=== PATIENT | female | born 1975 | race African-American/Black ===

== ENCOUNTER 2016-11-06 15:05 | Emergency (ER) | payer BC, MEDICAID, OTHER ==
[~2016-11-06] VITALS: Ht 170.2 cm; Wt 160.0 kg
[2016-11-06 15:44] LABS: EOSINOPHILS # (AUTO) 0.05 K/uL (0.00-0.70); HEMATOCRIT 36.1 % (36-46); HEMOGLOBIN 12.1 g/dL (12.0-16.0); LYMPHOCYTES # (AUTO) 1.4 K/uL (1.0-4.8); LYMPHOCYTES % (AUTO) 22.3 % (22.0-44.0); MEAN CORPUSCULAR HEMOGLOBIN 28.5 pg (26.0-34.0); MEAN CORPUSCULAR HGB CONC 33.7 G/dL (31.0-37.0); MEAN CORPUSCULAR VOLUME 85 fL (80-100); MONOCYTES # (AUTO) 0.3 K/uL (0.1-1.0); MONOCYTES % (AUTO) 4.3 % (2.0-9.0); NEUTROPHILS # (AUTO) 4.5 K/uL (1.8-7.7); NEUTROPHILS % (AUTO) 72.7 % (40.0-70.0); PLATELET COUNT (AUTO) 141 K/uL (150-450); RED BLOOD CELL COUNT(AUTO) 4.27 MIL/uL (4.00-5.20); RED CELL DISTRIBUTION WIDTH 14.6 % (11.5-14.5); WHITE BLOOD COUNT (AUTO) 6.1 K/uL (4.5-11.0)
[2016-11-06 15:52] LABS: ANION GAP 9 mmol/L (8-16); CALCIUM, TOTAL 8.7 mg/dL (8.8-10.5); CARBON DIOXIDE 26 mmol/L (22-29); CHLORIDE 102 mmol/L (98-107); CREATININE 0.79 mg/dL (0.60-1.30); GLOMERULAR FILTR. RATE CALC > 60 mL/min (>60); POTASSIUM 3.8 mmol/L (3.5-5.1); SODIUM SERUM 137 mmol/L (136-145); UREA NITROGEN, BLOOD 13 mg/dL (7-18)
[2016-11-06 15:56] LABS: APPEARANCE,URINE CLEAR (CLEAR); GLUCOSE, URINE (UA) NEGATIVE (NEGATIVE); KETONES,URINE NEGATIVE (NEGATIVE); LEUKOCYTE ESTERASE ,URINE TRACE (NEGATIVE); OCCULT BLOOD,URINE TRACE (NEGATIVE); PROTEIN,URINE NEGATIVE (NEGATIVE)
[2016-11-06 15:57] LABS: ALANINE AMINOTRANSFERASE 15 U/L (12-78); ALBUMIN 4.2 g/dL (3.4-5.0); ASPARTATE AMINOTRANSFERASE 16 U/L (15-37); BILIRUBIN,TOTAL 0.6 mg/dL (0.1-1.0)
[2016-11-06 16:01] LABS: RBC,URINE 0-2 /HPF (0-2); WBC,URINE 0-2 /HPF (0-5)
[2016-11-06 16:02] LABS: SQUAMOUS EPITHELIAL CELL,UR Rare /LPF (None Seen)
[2016-11-06] MEDS ORDERED: LISINOPRIL 10 MG TABLET PO ONE ×2 (17:00→18:00)
[2016-11-06] MEDS ORDERED: HYDROCHLOROTHIAZIDE 25 MG TABLET PO ONE ×2 (17:00→18:00)
[2016-11-06] MEDS ORDERED: ACETAMINOPHEN 500 MG TABLET PO ONE (18:15)
[2016-11-06 20:15] VITALS: BP 76/150
== END 2016-11-06 20:49 | disposition home or self-care (01) ==
LOC: EMS 15:07
DX: I16.0 Hypertensive urgency (principal); I10 Essential (primary) hypertension; R51 Headache
CPT/HCPCS: 93005; 99291

== ENCOUNTER 2018-08-18 02:00 | Emergency (ER) | payer OTHER ==
[~2018-08-18] VITALS: Ht 170.2 cm; Wt 63.6 kg
[2018-08-18 03:00] LABS: APPEARANCE,URINE CLOUDY (CLEAR); BILIRUBIN,URINE NEGATIVE (NEGATIVE); GLUCOSE, URINE (UA) NEGATIVE (NEGATIVE); KETONES,URINE TRACE mg/dL (NEGATIVE); LEUKOCYTE ESTERASE ,URINE SMALL (NEGATIVE); NITRATE,URINE NEGATIVE (NEGATIVE); OCCULT BLOOD,URINE NEGATIVE (NEGATIVE); PROTEIN,URINE NEGATIVE (NEGATIVE)
[2018-08-18 03:04] LABS: BACTERIA,URINE Few /HPF (None Seen); RBC,URINE 0-2 /HPF (0-2)
[2018-08-18 03:05] LABS: SQUAMOUS EPITHELIAL CELL,UR Many /LPF (None Seen)
[2018-08-18] MEDS ORDERED: CefTRIAXone SODIUM 1 GM/VIAL IM ONE (04:00)
[2018-08-18] MEDS ORDERED: AZITHROMYCIN 250 MG TABLET PO ONE (04:00)
[2018-08-18 04:06] VITALS: BP 178/97
== END 2018-08-18 04:08 | disposition home or self-care (01) ==
LOC: EMS 02:01
DX: N39.0 Urinary tract infection, site not specified (principal)
CPT/HCPCS: 81001; 81025; 84703; 87086; 96372; 99283; J0696

== ENCOUNTER 2019-04-02 21:12 | Emergency (ER) | payer OTHER ==
[~2019-04-02] VITALS: Ht 170.2 cm; Wt 65.9 kg
[2019-04-02] MEDS ORDERED: METOCLOPRAMIDE HCL 5 MG/ML 2 ML VIAL IVP ONE (23:00)
[2019-04-02] MEDS ORDERED: SODIUM CHLORIDE 0.9% 1,000 ML IV ONE (23:00)
[2019-04-02] MEDS ORDERED: LABETALOL HCL 5 MG/ML 20 ML VIAL IVP ONE (23:15)
[2019-04-02 23:24] LABS: EOSINOPHILS % (AUTO) 1.7 % (1.0-6.0); HEMATOCRIT 30.1 % (36-46); LYMPHOCYTES # (AUTO) 0.5 K/uL (1.0-4.8); LYMPHOCYTES % (AUTO) 8.4 % (22.0-44.0); MEAN CORPUSCULAR HEMOGLOBIN 23.6 pg (26.0-34.0); MEAN CORPUSCULAR HGB CONC 33.3 G/dL (31.0-37.0); MEAN CORPUSCULAR VOLUME 71 fL (80-100); MONOCYTES # (AUTO) 0.4 K/uL (0.1-1.0); MONOCYTES % (AUTO) 6.6 % (2.0-9.0); NEUTROPHILS # (AUTO) 4.6 K/uL (1.8-7.7); NEUTROPHILS % (AUTO) 82.3 % (40.0-70.0); PLATELET COUNT (AUTO) 155 K/uL (150-450); RED BLOOD CELL COUNT(AUTO) 4.25 MIL/uL (4.00-5.20); RED CELL DISTRIBUTION WIDTH 19.1 % (11.5-14.5)
[2019-04-02 23:31] LABS: ANION GAP 8 mmol/L (8-16); CALCIUM, TOTAL 8.7 mg/dL (8.8-10.5); CARBON DIOXIDE 25 mmol/L (22-29); CHLORIDE 100 mmol/L (98-107); CREATININE 0.99 mg/dL (0.60-1.30); GLOMERULAR FILTR. RATE CALC > 60 mL/min (>60); GLUCOSE,RANDOM 89 mg/dL (70-110); POTASSIUM 3.7 mmol/L (3.5-5.1); SODIUM SERUM 133 mmol/L (136-145); UREA NITROGEN, BLOOD 16 mg/dL (7-18)
[2019-04-02 23:45] LABS: ALANINE AMINOTRANSFERASE 19 U/L (12-78); ALBUMIN 3.5 g/dL (3.4-5.0); ALKALINE PHOSPHATASE 71 U/L (46-116); ASPARTATE AMINOTRANSFERASE 23 U/L (15-37); BILIRUBIN,TOTAL 0.6 mg/dL (0.1-1.0); HCG,QUANTITATIVE < 1 mIU/mL (0-6); TOTAL PROTEIN, SERUM 7.2 g/dL (6.4-8.2)
[2019-04-03 01:07] VITALS: BP 127/96
== END 2019-04-03 01:13 | disposition home or self-care (01) ==
LOC: EMS 21:12
DX: I10 Essential (primary) hypertension (principal); R51 Headache
CPT/HCPCS: 36415; 70450; 80053; 84702; 85025; 96374; 96375; 99284; J2765; J3490; J7030

== ENCOUNTER 2020-10-05 17:22 | Emergency (ER) | payer OTHER ==
[~2020-10-05] VITALS: Ht 170.2 cm; Wt 70.5 kg
[2020-10-05 17:55] VITALS: BP 161/109
[2020-10-05] MEDS ORDERED: LOSA25TA21 PO (17:59)
[2020-10-05] MEDS ORDERED: ACETAMINOPHEN 500 MG TABLET PO ONE (20:15)
== END 2020-10-05 22:02 | disposition home or self-care (01) ==
LOC: EMS 17:26
DX: U07.1 COVID-19 (principal); I10 Essential (primary) hypertension; F12.90 Cannabis use, unspecified, uncomplicated; Z88.8 Allergy status to other drugs, medicaments and biological substances; Z79.899 Other long term (current) drug therapy
CPT/HCPCS: 99283; U0003

== ENCOUNTER 2022-10-25 18:46 | Inpatient (IN) | payer OTHER ==
[~2022-10-25] VITALS: Ht 170.2 cm; Wt 68.0 kg
[~2022-10-25 18:46] MED LIST: LOSA-381 PO
[2022-10-25] MEDS ORDERED: LABETALOL HCL 5 MG/ML 20 ML VIAL IVP PRN ×2 (19:00)
[2022-10-25] MEDS ORDERED: ASPIRIN 81 MG CHEWABLE TABLET PO ONE (20:15)
[2022-10-25] MEDS ORDERED: GADOTERATE MEGLUMINE 10 MMOL/20 ML VIAL IVP ONE (20:49)
[2022-10-25 21:06] LABS: BASOPHILS % (AUTO) 0.4 % (0.0-2.0); HEMATOCRIT 40.5 % (36-46); HEMOGLOBIN 13.3 g/dL (12.0-16.0); LYMPHOCYTES # (AUTO) 1.7 K/uL (1.0-4.8); LYMPHOCYTES % (AUTO) 27.9 % (22.0-44.0); MEAN CORPUSCULAR HEMOGLOBIN 29.5 pg (26.0-34.0); MEAN CORPUSCULAR HGB CONC 32.7 G/dL (31.0-37.0); MEAN CORPUSCULAR VOLUME 90 fL (80-100); MONOCYTES # (AUTO) 0.4 K/uL (0.1-1.0); MONOCYTES % (AUTO) 6.5 % (2.0-9.0); NEUTROPHILS # (AUTO) 3.9 K/uL (1.8-7.7); NEUTROPHILS % (AUTO) 63.2 % (40.0-70.0); PLATELET COUNT (AUTO) 131 K/uL (150-450); RED CELL DISTRIBUTION WIDTH 12.6 % (11.5-14.5); WHITE BLOOD COUNT (AUTO) 6.1 K/uL (4.5-11.0)
[2022-10-25 21:10] LABS: ANION GAP 9 mmol/L (8-16); CARBON DIOXIDE 28 mmol/L (22-29); CHLORIDE 103 mmol/L (98-107); CREATININE 0.85 mg/dL (0.60-1.30); GLOMERULAR FILTR. RATE CALC > 60 mL/min (>60); GLUCOSE,RANDOM 77 mg/dL (70-110); POTASSIUM 3.5 mmol/L (3.5-5.1); SODIUM SERUM 140 mmol/L (136-145); UREA NITROGEN, BLOOD 21 mg/dL (7-18)
[2022-10-25 21:13] LABS: PROTHROMBIN TIME 10.9 SEC (9.4-11.6)
[2022-10-25 21:16] LABS: ALANINE AMINOTRANSFERASE 11 U/L (12-78); ALBUMIN 3.8 g/dL (3.4-5.0); ALKALINE PHOSPHATASE 83 U/L (46-116); ASPARTATE AMINOTRANSFERASE 19 U/L (15-37); BILIRUBIN,TOTAL 0.6 mg/dL (0.1-1.0); TOTAL PROTEIN, SERUM 7.3 g/dL (6.4-8.2)
[2022-10-25 21:31] LABS: TROPONIN I-HIGH SENSITIVITY 5 ng/L (<51)
[2022-10-25] MEDS ORDERED: ONDANSETRON HCL 4 MG/2 ML VIAL IVP PRN (22:00)
[2022-10-25] MEDS ORDERED: ACETAMINOPHEN 325 MG TABLET PO PRN (22:00)
[2022-10-25] MEDS ORDERED: HydrALAZINE HCL 20 MG/ML VIAL IVP PRN (22:15)
[2022-10-25 22:40] LABS: HEMOGLOBIN A1C 4.8 % (3.8-5.6)
[2022-10-25 22:41] LABS: CHOL/HDL RATIO 1.9 (3.9-5.7); CHOLESTEROL 150 mg/dL (131-200); HDL CHOLESTEROL 77 mg/dL (40-60); LDL CHOL (CALC.) 65 mg/dL (0-130); TRIGLYCERIDES 38 mg/dL (15-150)
[2022-10-25] MEDS: HEPARIN SODIUM,PORCINE 5,000 UNITS/ML VIAL SQ SCH (23:05)
[2022-10-26 00:42] VITALS: BP 155/113; PULSE 71; RESP 20; TEMP 98.1
[2022-10-26 02:23] LABS: TROPONIN I-HIGH SENSITIVITY 4 ng/L (<51)
[2022-10-26 05:01] VITALS: BP 137/111; PULSE 76; RESP 18; TEMP 98.1
[2022-10-26 06:29] LABS: BASOPHILS % (AUTO) 0.6 % (0.0-2.0); EOSINOPHILS % (AUTO) 2.7 % (1.0-6.0); HEMATOCRIT 37.9 % (36-46); LYMPHOCYTES # (AUTO) 1.5 K/uL (1.0-4.8); LYMPHOCYTES % (AUTO) 25.6 % (22.0-44.0); MEAN CORPUSCULAR HEMOGLOBIN 30.9 pg (26.0-34.0); MEAN CORPUSCULAR HGB CONC 34.4 G/dL (31.0-37.0); MEAN CORPUSCULAR VOLUME 90 fL (80-100); MONOCYTES # (AUTO) 0.5 K/uL (0.1-1.0); MONOCYTES % (AUTO) 7.8 % (2.0-9.0); NEUTROPHILS # (AUTO) 3.8 K/uL (1.8-7.7); NEUTROPHILS % (AUTO) 63.3 % (40.0-70.0); PLATELET COUNT (AUTO) 133 K/uL (150-450); RED BLOOD CELL COUNT(AUTO) 4.21 MIL/uL (4.00-5.20); RED CELL DISTRIBUTION WIDTH 12.4 % (11.5-14.5)
[2022-10-26 07:13] LABS: ANION GAP 10 mmol/L (8-16); CALCIUM, TOTAL 8.5 mg/dL (8.8-10.5); CARBON DIOXIDE 26 mmol/L (22-29); CHLORIDE 104 mmol/L (98-107); CREATININE 0.62 mg/dL (0.60-1.30); GLOMERULAR FILTR. RATE CALC > 60 mL/min (>60); GLUCOSE,RANDOM 83 mg/dL (70-110); POTASSIUM 3.6 mmol/L (3.5-5.1); SODIUM SERUM 140 mmol/L (136-145); UREA NITROGEN, BLOOD 17 mg/dL (7-18)
[2022-10-26] MEDS: DOCUSATE SODIUM 100 MG CAPSULE PO SCH ×2 (09:00→21:00)
[2022-10-26] MEDS: ATORVASTATIN CALCIUM 40 MG TABLET PO SCH (09:34)
[2022-10-26] MEDS: HEPARIN SODIUM,PORCINE 5,000 UNITS/ML VIAL SQ SCH ×2 (09:35→15:49)
[2022-10-26] MEDS: ASPIRIN 81 MG CHEWABLE TABLET PO SCH (09:35)
[2022-10-26 10:02] LABS: APPEARANCE,URINE CLEAR (CLEAR); BILIRUBIN,URINE NEGATIVE (NEGATIVE); COLOR,URINE YELLOW (YELLOW); GLUCOSE, URINE (UA) NEGATIVE (NEGATIVE); KETONES,URINE NEGATIVE (NEGATIVE); LEUKOCYTE ESTERASE ,URINE MODERATE (NEGATIVE); NITRATE,URINE NEGATIVE (NEGATIVE); OCCULT BLOOD,URINE NEGATIVE (NEGATIVE); PH,URINE DRUG SCREEN 6.5 (5.0-8.0); PROTEIN,URINE NEGATIVE (NEGATIVE); SPECIFIC GRAVITIY, URINE 1.024 (1.003-1.030)
[2022-10-26 10:04] LABS: RBC,URINE 0-2 /HPF (0-2)
[2022-10-26 10:05] LABS: BACTERIA,URINE Few /HPF (None Seen); CALCIUM OXALATE CRYSTALS,UR Rare /LPF (None Seen)
[2022-10-26 10:09] LABS: ALCOHOL, URINE DRUG SCREEN NEGATIVE (NEGATIVE); AMPHET/METH SCREEN,URINE NEGATIVE (NEGATIVE); BARBITURATE SCREEN, URINE NEGATIVE (NEGATIVE); BENZODIAZEPINES SCREEN,URINE NEGATIVE (NEGATIVE); CANNABINOID SCREEN,URINE NEGATIVE (NEGATIVE); COCAINE SCREEN,URINE NEGATIVE (NEGATIVE); METHADONE SCREEN, URINE NEGATIVE (NEGATIVE); OPIATE SCREEN,URINE NEGATIVE (NEGATIVE); PHENCYCLIDINE SCREEN,URINE NEGATIVE (NEGATIVE)
[2022-10-26] MEDS: NIFEdipine 30 MG ER TABLET PO SCH (15:49)
[2022-10-26] MEDS: CLOPIDOGREL BISULFATE 75 MG TABLET PO SCH (15:49)
[2022-10-26] MEDS ORDERED: HydrALAZINE HCL 20 MG/ML VIAL IVP PRN (16:15)
[2022-10-26 19:27] VITALS: BP 139/99; PULSE 76; RESP 18; TEMP 98.1
[2022-10-26] MEDS ORDERED: SODIUM CHLORIDE 0.9% 100 ML ONE (20:31)
[2022-10-26] MEDS ORDERED: IOHEXOL 350 MG/ML 100 ML VIAL ONE (20:32)
[2022-10-26] MEDS: CEPHALEXIN MONOHYDRATE 500 MG CAPSULE PO SCH (21:22)
[2022-10-26 23:54] VITALS: BP 129/83; PULSE 78; RESP 18; TEMP 98.4
[2022-10-27] MEDS: HEPARIN SODIUM,PORCINE 5,000 UNITS/ML VIAL SQ SCH ×3 (00:17→16:01)
[2022-10-27 04:23] VITALS: BP 132/85; PULSE 82; RESP 18; TEMP 98
[2022-10-27 08:00] VITALS: BP 133/98; PULSE 76; RESP 20; TEMP 98.2
[2022-10-27] MEDS: ASPIRIN 81 MG CHEWABLE TABLET PO SCH (08:40)
[2022-10-27] MEDS: DOCUSATE SODIUM 100 MG CAPSULE PO SCH ×2 (08:41→21:00)
[2022-10-27] MEDS: CEPHALEXIN MONOHYDRATE 500 MG CAPSULE PO SCH ×2 (08:41→21:01)
[2022-10-27] MEDS: NIFEdipine 30 MG ER TABLET PO SCH (08:43)
[2022-10-27] MEDS: CLOPIDOGREL BISULFATE 75 MG TABLET PO SCH (08:43)
[2022-10-27] MEDS: ATORVASTATIN CALCIUM 40 MG TABLET PO SCH (08:46)
[2022-10-27 11:51] VITALS: BP 144/77; RESP 19; TEMP 98.4
[2022-10-27 16:00] VITALS: BP 118/74; PULSE 99; RESP 19; TEMP 98
[2022-10-27 21:12] VITALS: BP 128/88; PULSE 82; RESP 16; TEMP 97.8
[2022-10-28 00:06] VITALS: BP 122/79; PULSE 76; RESP 16; TEMP 97.9
[2022-10-28 04:45] VITALS: BP 132/94; PULSE 66; RESP 16; TEMP 98.2
[2022-10-28 07:29] VITALS: BP 132/90; PULSE 68; RESP 18; TEMP 97.9
[2022-10-28] MEDS: HEPARIN SODIUM,PORCINE 5,000 UNITS/ML VIAL SQ SCH ×2 (08:32)
[2022-10-28] MEDS: ASPIRIN 81 MG CHEWABLE TABLET PO SCH (08:36)
[2022-10-28] MEDS: CEPHALEXIN MONOHYDRATE 500 MG CAPSULE PO SCH (08:36)
[2022-10-28] MEDS: DOCUSATE SODIUM 100 MG CAPSULE PO SCH (08:36)
[2022-10-28] MEDS: CLOPIDOGREL BISULFATE 75 MG TABLET PO SCH (08:36)
[2022-10-28] MEDS: ATORVASTATIN CALCIUM 40 MG TABLET PO SCH (08:36)
[2022-10-28] MEDS: NIFEdipine 30 MG ER TABLET PO SCH (08:37)
[2022-10-28] MEDS ORDERED: CLOP75TA60 PO (08:58)
[2022-10-28] MEDS ORDERED: ASPI81 PO (08:58)
[2022-10-28] MEDS ORDERED: CEPH-558 PO (08:58)
[2022-10-28] MEDS ORDERED: ATOR40TA71 PO (08:58)
[2022-10-28] MEDS ORDERED: NIFE-141 PO ×2 (08:59)
[2022-10-28 12:33] VITALS: BP 140/87; PULSE 74; RESP 18; TEMP 98.3
[2022-10-30 14:06] LABS: PROTEIN C AG-TOTAL 88 % (60-150)
[2022-10-30 23:06] LABS: ANTITHROMBIN ANTIGEN 112 % (72-124); ANTITHROMBIN, ENZYMATIC ACTVTY 123 % (75-135); DRVVT-LUPUS ANTICOAGULANT 27.9 sec (0.0-47.0); PROTEIN S, FREE 106 % (61-136); PT-LUPUS ANTICOAGULANT 10.8 sec (9.1-12.0); PTT 28.8 sec (22.9-30.2)
== END 2022-10-28 16:10 | disposition home or self-care (01) | DRG 45 ==
LOC: EMS 18:47 → 5S 23:03
PROVIDERS: ADMIT Internal Medicine; ATTEND Internal Medicine
DX: I63.512 Cerebral infarction due to unspecified occlusion or stenosis of left middle cerebral artery (principal); I10 Essential (primary) hypertension; N39.0 Urinary tract infection, site not specified; Z86.73 Personal history of transient ischemic attack (TIA), and cerebral infarction without residual deficits; Z88.8 Allergy status to other drugs, medicaments and biological substances; Z79.899 Other long term (current) drug therapy; Z91.199 Patient's noncompliance with other medical treatment and regimen due to unspecified reason; Z98.82 Breast implant status; Z98.51 Tubal ligation status; Z82.49 Family history of ischemic heart disease and other diseases of the circulatory system
CPT/HCPCS: 70450; 70496; 70498; 70553; 71045; 80048; 80053; 80061; 80307; 81001; 83036; 83735; 84484; 84702; 85025; 85300; 85301; 85302; 85305; 85306; 85610; 85613; 85730; 85732; 86038; 86850; 86900; 86901; 87040; 87086; 87186; 92610; 93005; 93306; 97112; 97116; 97161; 97165; 97535; 99291; J0360; J1644; J3490; J7050; Q9967; 36415-L1; 36415-TC